=== PATIENT | female | born 1960 | race Caucasian/White ===

== ENCOUNTER 2016-11-09 11:58 | Emergency (ER) | payer OTHER ==
[~2016-11-09] VITALS: Ht 152.4 cm; Wt 118.0 kg
[2016-11-09 13:24] VITALS: BP 127/78
== END 2016-11-09 14:27 | disposition home or self-care (01) ==
LOC: ER 11:59
DX: B35.3 Tinea pedis (principal); F17.200 Nicotine dependence, unspecified, uncomplicated; Z88.0 Allergy status to penicillin
CPT/HCPCS: 99282

== ENCOUNTER 2016-11-22 17:25 | Emergency (ER) | payer OTHER ==
[~2016-11-22] VITALS: Ht 152.4 cm; Wt 118.0 kg
[2016-11-22 22:00] VITALS: BP 136/89
== END 2016-11-22 22:04 | disposition home or self-care (01) ==
LOC: ER 20:00
DX: L60.0 Ingrowing nail (principal); Z88.0 Allergy status to penicillin
CPT/HCPCS: 99283; Z7610